=== PATIENT | male | born 1970 | race Caucasian/White ===

== ENCOUNTER 2023-02-07 07:34 | Outpatient (CLI) | payer BC, SELFPAY | END 2023-02-07 07:35 | disposition home or self-care (01) | LOC: NFLDREF 02-08 08:51 | PROVIDERS: PCP Internal Medicine; Referring Provider Internal Medicine; Visit Provider Internal Medicine | DX: Z13.220 Encounter for screening for lipoid disorders (principal); Z13.228 Encounter for screening for other metabolic disorders; Z85.46 Personal history of malignant neoplasm of prostate | CPT/HCPCS: 80053; 80061; 84153 ==

== ENCOUNTER 2024-02-20 08:39 | Outpatient (CLI) | payer BC, SELFPAY | END 2024-02-20 08:40 | disposition home or self-care (01) | LOC: NFLDREF 02-24 15:37 | PROVIDERS: PCP Internal Medicine; Referring Provider Internal Medicine; Visit Provider Internal Medicine | DX: C61 Malignant neoplasm of prostate (principal); E78.5 Hyperlipidemia, unspecified; Z13.228 Encounter for screening for other metabolic disorders | CPT/HCPCS: 80053; 80061; G0103 ==

== ENCOUNTER 2024-02-25 16:56 | Outpatient (CLI) | payer BC, SELFPAY | END 2024-02-25 16:57 | disposition home or self-care (01) | LOC: NFLDREF 16:57 | PROVIDERS: PCP Internal Medicine; Visit Provider Internal Medicine | DX: Z00.00 Encounter for general adult medical examination without abnormal findings (principal); C61 Malignant neoplasm of prostate | CPT/HCPCS: G0103 ==

== ENCOUNTER 2024-12-05 20:20 | Emergency (ER) | payer BC, SELFPAY ==
--- OUTSIDE RECORDS SUMMARY | 2024-12-05 20:21 | XMS_ITS | Clinical Summary ---
Author Organization [facility] Address [address] [place] [address] Care Team Providers Care Bank Courier Name Role Phone Unavailable Primary Care Provider Unavailabl e Source Comments Patient records contain information from all sites at [facility]. For routine questions regarding patient records, call [phone] during business hours, M-F 8:00 AM - 5:00 PM Central Time. Record requests for emergency care only can be directed to [phone] at any time.[facility] Allergies Active Allergy Reactions Criticality Noted Date Comments Fish Containing Products Swelling,Angioedema throat swelling Medications * This document contains information received from the source organization and may not represent a complete record from that organization. ibuprofen (ADVIL,MOTRIN) 200 mg tablet Take 1-2 tablets by mouth daily as needed. Pain, infrequent use 6 Active loratadine (CLARITIN) 10 mg tablet Take 1 tablet by mouth daily. 6 Active montelukast (SINGULAIR) 10 mg tablet Take 1 tablet by mouth at bedtime. 6 Active multivitamin tablet Take 1 tablet by mouth daily. 6 Active albuterol sulfate (PROAIR HFA INHL) Inhale 1 Inhaler every 4 (four) hours. As needed 6 Active sennosides-docu sate sodium (SENNA WITH DOCUSATE SODIUM) 8.6-50 mg per tablet Take 1 tablet by mouth at bedtime as needed. 6 Active pantoprazole (Protonix) 40 mg EC tablet Take 1 tablet by mouth daily. 0 Active EPINEPHrine 0.3 mg/0.3 mL injection syringe Inject 0.3 mg under the skin as needed for anaphylaxis. 1 Active magnesium 200 mg tablet Take 400 mg by mouth daily before morning meal. Active Active Problems Problem Noted Date Diagnosed Date Primary Malignant Neoplasm Of Prostate 6 Family History Medical History Relation Name Comments Hyperlipidemia Father Emperatriz Ferro 50 Prostate cancer Father Emperatriz Ferro 70 Skin cancer Father Emperatriz Ferro 66 Coronary artery disease Maternal Grandfather N [place] 60 Hypertension Maternal Grandfather N [place] 55 Stroke Maternal Grandfather N [place] 63 Arthritis Maternal Grandmother D [place] 60 Colon cancer Maternal Grandmother D [place] 55 Diabetes Maternal Grandmother D [place] 60 Arthritis Mother Emperatriz Ferro 55 Diabetes Mother Emperatriz Ferro 50 Hypertension Mother Emperatriz Ferro 65 Kidney disease Mother Emperatriz Ferro 71 Skin cancer Mother Emperatriz Ferro 67 Stroke Mother Emperatriz Ferro 69 Skin cancer Mother's Brother D [place] 74 Prostate cancer Paternal Grandfather T [place] 55 Asthma Son Carmelina ferro 4 Relation Name Status Comments Father Emperatriz Ferro Alive Maternal Grandfather N [place] Alive Maternal Grandmother D [place] Alive Mother Emperatriz Ferro Alive Mother's Brother D [place] Alive Paternal Grandfather T [place] Alive Son Carmelina ferro Alive Social History Tobacco Use Types Packs/Day Years Used Date Smoking Tobacco: Never Passive Smoke Exposure: Past Smokeless Tobacco: Never Alcohol Use Standard Drinks/Week Comments No 0 (1 standard drink = 0.6 oz pur e alcohol) [facility] Utilities Answer Date Recorded In the past 12 months has [facility] [employer], [employer], or [employer] threatened to shut off services in your home? No 07/27/2024 Humiliation, Afraid, Rape, and Kick questionnair e Answer Date Recorded Within the last year, have y ou been afraid of your partner or ex-partner? No 07/29/2022 Within the last year, have y ou been humiliated or emotionally abused in other ways by your partner or ex-partner? No Within the last year, have y ou been kicked, hit, slapped, or otherwise physically hurt by your partner or ex-partner? No 07/29/2022 Within the last year, have y ou been raped or forced to have any kind of sexual activity by your partner or ex-partner? No 07/29/2022 Social Connection and Isolat ion Panel [NHANES] Answer Date Recorded In a typical week, how many times do you talk on the phone with family, friends, or neighbors? Three times a week 07/29/2022 How often do you get togethe r with friends or relatives? Once a week 07/29/2022 How often do you attend chur ch or synagogue services? More than 4 times per year 07/29/2022 Do you belong to any clubs o r organizations such as zoroastrianism groups, unions, fraternal or athletic groups, or school groups? Yes 07/29/2022 How often do you attend meet ings of the clubs or organizations you belong to? More than 4 times per year 07/29/2022 Are you , , di vorced, , never , or living with a partner? 07/29/2022 AUDIT-C Answer Date Recorded Q1: How often do you have a drink containing alc ohol? Never 07/29/2022 Average Number of Drinks Not on file 023 Frequency of Binge Drinking Not on file 07/14 Overall Financial Resource Strain (CARDIA) Answe r Date Recorded How hard is it for you to pa y for the very basics like food, housing, medical care, and heating? Not hard at all 07/29/2022 [facility] - Occupational Stress Questionnaire Answer Date Recorded Do you feel stress - tense, restless, nervous, or anxious, or unable to sleep at night because your mind is troubled all the time - these days? Not at all 07/29/2022 Exercise Vital Sign Answer Date Recorde d On average, how many days pe r week do you engage in moderate to strenuous exercise (like a brisk walk)? 3 days 07/27/2024 On average, how many minutes do you engage in exercise at this level? 40 min 07/27/2024 Hunger Vital Sign Answer Date Recorded Within the past 12 months, y ou worried that your food would run out before you got the money to buy more. Never true 07/27/19 25 Within the past 12 months, t he food you bought just didn't last and you didn't have money to get more. Never true 07/27/2024 PRAPARE - Transportation Answer Date Re corded In the past 12 months, has l ack of transportation kept you from medical appointments or from getting medications? No 07/14 In the past 12 months, has l ack of transportation kept you from meetings, work, or from getting things needed for daily living? No 07/27/2024 Nutrition Answer Date Recorded On average, how many serving s of fruits and vegetables do you eat per day (serving size is equal to 1 cup or approximately the size of a tennis ball)? 0-2 07/27/2024 Dental Answer Date Recorded Dental: Regular Dentist Yes 07/24/19 Employment Answer Date Recorded Employment status Employed and actively working without restrictions 07/27/2024 Housing Stability Answer Date Recorded What is your living situation today? I have a [facility] place to live 07/27/2024 Education Answer Date Recorded What is the highest level of school you have completed or the highest degree you have received? Bachelor's degree (e.g., BA, AB, BS) 01/18/2019 Sex and Gender Information Value Date Recorded Sex Assigned at Male 01/20/2018 8:43 PM CDT Legal Sex Male 10:16 PM ONCOLOGY SPECIALIST Gender Identity Male 01/20/2018 8:43 PM CDT Sexual Orientation Straight 01/20/2018 8: 43 PM CDT Last Filed Vital Signs Vital Sign Reading Time Taken Comments Blood Pressure 109/72 11/23/2015 11:44 AM CDT NIBP - Value from [employer]. Pulse 62 11/23/2015 11:44 AM CDT Value from [employer]. Temperature - - Respiratory Rate 18 11/23/2015 11:4 4 AM CDT Oxygen Saturation - - Inhaled Oxygen Concentration - - Weight 67 kg (147 lb 11.3 oz) 11/22/2015 7:27 AM CDT Vital sign result from CDM. Height 174 cm (5' 8.5) 11/22/2015 7:27 AM CDT Vital sign result from CDM. Body Mass Index 22.13 11/22/2015 7:27 AM CDT Plan of Treatment Health Maintenance Due Date Last Done Comments CT Colonography 1969 Cologuard 1969 Colonoscopy 1969 Colorectal Cancer Screening 1969 FIT 1969 HIV Screening 1969 Hepatitis C Screening 1969 Lipid (Cholesterol) Screening 1969 Hepatitis B Vaccines (1 of 3 - 19+ 3-dose series) 1988 Fasting Glucose for Diabetes Screening 11/22/2018 11/23/2015, 11/21/2015 COVID-19 Vaccine (3 - 2023-2 5 season) 2024 10/21/2020, 09/30/2020 Influenza Vaccine (#1) 2024 , 05/26/2018 Depression Screening (Annual PHQ-2) 07/14/2024 DTaP,Tdap,and Td Vaccines (2 - Td or Tdap) 09/28/2029 09/29/2019, 12/26/2006 Zoster Vaccines Completed 11/22/2020, 07/03/2020 Pneumococcal vaccine (50+ years) Completed 02/12/2023 IPV Vaccines Aged Out No longer eligi ble based on patient's age to complete this topic Medical Devices Implanted Type Area Equities Trader Device Identifier Shelf Expiration Date Model / Serial / Lot Mesh Or Patch Mesh or Patch Groin Procedures Procedure Name Priority Date/Time Associated Diagnosis Comments ELECTROLYTE (CHEM 4) PANEL, S/P Routine 11/23/2015 12:42 AM CDT from Last 3 Months or Most Recently Relevant to Health Maintenance Results * (ABNORMAL) Electrolyte (Chem 4) Panel (11/23/2015 12:42 AM CDT) Chloride, S 102 98 - 107 MMOL/L [facility] HX Bicarbonate, P/S 24 22 - 29 MMOL/L [facility] Creatinine 0.6(L) 0.8 - 1.3 MG/DL [facility] eGFR Non-Black/Afric an Swedish >60 >60 ML/MIN/BSA [facility] eGFR-Black/Afri can Swedish >60 >60 ML/MIN/BSA [facility] BUN (Blood Urea Nitrogen), S 10 8 - 24 MG/DL [facility] Sodium, S 139 135 - 145 MMOL/L [facility] Potassium, S 4.3 3.6 - 5.2 MMOL/L [facility] Anion Gap 13 7 - 15 [facility] Glucose, S 132 70 - 140 MG/DL [facility] 11/23/2015 12:4 2 AM CDT 11/23/2015 12:42 AM CDT us Min Landis M.D. LAB BLOOD ADD-ON Final Resul t [facility] [address] [place] [address], [facility] from Last 3 Months or Most Recently Relevant to Health Maintenance Insurance [facility] Advance Directives For more information, please contact: [phone] Documents on File Type Date Recorded Patient Voice Over Artist Expl anation Advance Directives 11/22/2015 12:00 AM Leg acy document. See document viewer.
--- OUTSIDE RECORDS SUMMARY | 2024-12-05 20:21 | XMS_ITS | Clinical Summary ---
Author Organization [facility] Address [address] [place] [id number] Care Team Providers Care Hot Dip Plating Supervisor Name Role Phone Campos Livingston MD Primary Care Provider Allergies Active Allergy Reactions Criticality Noted Date Comments Fish Containing Products Angioedema 08/28/2015 throat swelling Medications montelukast (SINGULAIR) 10 mg tablet Take 1 tablet by mouth at bedtime. 0 5 Active albuterol HFA (PRO-AIR,VENTOLI N,PROVENTIL) 90 mcg/actuation inhaler Inhale 2 Puffs by mouth 4 times daily if needed. 0 6 Active sennosides-docus ate, 8.6-50 mg, (SENOKOT S) 8.6-50 mg tablet Take 1 tablet by mouth once daily. 0 9 Active multivitamin (MULTIPLE VITAMINS) tablet Take 1 tablet by mouth once daily. 0 9 Active loratadine (CLARITIN) 10 mg tablet Take 1 tablet by mouth once daily. 0 9 Active pantoprazole (PROTONIX) 40 mg delayed-release tabletIndication s:Gastroesophage al reflux disease, unspecified whether esophagitis present TAKE 1 TABLET BY MOUTH EVERY DAY 30 TO 60 MINUTES BEFORE A MEAL FOOD 90 tablet 0 Active EPINEPHrine (EPIPEN) 0.3 mg/0.3 mL injectionIndicat ions:Adverse food reaction, initial encounter Use as directed 2 Each 11 1 Active pantoprazole (PROTONIX) 40 mg delayed-release tabletIndication s:Gastroesophage al reflux disease, unspecified whether esophagitis present TAKE 1 TABLET ONCE DAILY 90 Tablet 3 4 Active Active Problems Problem Noted Date Diagnosed Date Elevated PSA 06/14/2015 Social History Tobacco Use Types Packs/Day Years Used Date Smoking Tobacco: Never Smokeless Tobacco: Never Tobacco Cessation:Counseling Given: Yes Alcohol Use Standard Drinks/Week Comments No 0 (1 standard drink = 0.6 oz pur e alcohol) Social Connections Answer Date Recorded Frequency of Communication with Friends and Fami ly Not on file 07/14/2021 Financial Resource Strain Answer Date R ecorded Difficulty of Paying Living Expenses Not on file 07/14/2021 Difficulty of Paying Living Expenses Not on file 07/14/2021 Sex and Gender Information Value Date Recorded Sex Assigned at Not on file Legal Sex Male 7:27 AM PSYCHIATRIST Gender Identity Not on file Sexual Orientation Not on file Obstetrics History Last Filed Vital Signs Vital Sign Reading Time Taken Comments Blood Pressure 108/74 08/25/2020 1:35 PM PSYCHIATRIST Pulse 48 11/16/2020 9:20 AM CDT Temperature 36.6 C (97.9 F) 08/21/2015 5:18 PM PSYCHIATRIST Respiratory Rate - - Oxygen Saturation 100% 08/25/2020 1:35 PM PSYCHIATRIST Inhaled Oxygen Concentration - - Weight 68.9 kg (152 lb) 11/16/2020 9:20 AM CDT Height 172.7 cm (5' 8) 11/16/2020 9:20 AM CDT Body Mass Index 23.11 11/16/2020 9:20 AM CDT Plan of Treatment Health Maintenance Due Date Last Done Comments Tdap 1980 Depression screening for age 12+ 1981 HIV for age 15-65 1984 Hepatitis C screening for age 18-79 11/05/1987 Hepatitis B series for 19+ ( 1 of 3 - 19+ 3-dose series) 1988 Tetanus booster 1989 Colonoscopy through age 75 2014 Lipids for age 45-75 2014 Pneumococcal series for age 50+ (1 of 1 - PCV) 11/05/2019 Zoster (shingles) series for age 50+ (1 of 2) 11/05/2019 BMI (ht and wt on same day) for age 18+ 11/16/2021 0 11/16/2020, 08/21/2015 COVID-19 vaccine series (2023- season) 2024 Influenza Vaccine (Season Ended) 2025 Insurance [facility] Care Teams Hot Dip Plating Supervisor Relationship Specialty Start Date End Date Campos Livingston MD [address] [place] [address] PCP - General Internal Medicine 03/05/19
[2024-12-05 20:30] VITALS: BP 152/95; PULSE 60; RESP 16; TEMP 37; O2SAT 98; BMI 22.2
--- NOTE | 2024-12-05 20:42 | ED.GENADULT ---
HPI - General Adult General Date Seen: 12/05/24 Chief complaint: Laceration/Wound Stated complaint: Chin Lac Time Seen by Provider: 12/05/24 20:23 History of Present Illness HPI narrative: 54 yo M with a history of GERD, mild asthma, presenting to the ER tonight for a laceration on the right side of his chin. At about 10 after a he was walking up some steps and then tripped on the last step and fell forward hit his chin on a speaker, suffering a laceration. Bleeding was controlled prior to arrival. He is up-to-date on tetanus. He is not having any pain in his jaw. No trouble opening or closing his mouth. No headache. No blurry vision. No other injuries. No neck pain Related Data Home Medications ?Medication ?Instructions ?Recorded ?Confirmed loratadine 10 mg tablet (Claritin) 10 mg PO QDAY 09/22/22 12/05/24 multivitamin 1 tab PO QAM 09/22/22 12/05/24 Previous Rx's ?Medication ?Instructions ?Recorded pantoprazole 40 mg tablet,delayed 40 mg PO DAILY #90 tabs 02/25/24 release albuterol sulfate 90 mcg/actuation 2 puff inhalation Q6H PRN 02/29/24 aerosol inhaler shortness of breath or wheezing #8.5 grams montelukast 10 mg tablet 10 mg PO QPM Asthma #90 tabs 07/23/24 Allergies Allergy/AdvReac Type Severity Reaction Status Date / Time Fish Containing Products Allergy Severe Anaphylaxis Verified 02/25/24 16:12 shellfish derived Allergy Severe trouble Verified 02/25/24 16:12 breathing PFSH PFS Medical History (Updated 12/05/24 @ 21:22 by Jayme Doty MD) GERD (gastroesophageal reflux disease) ?K21.9 - Gastro-esophageal reflux disease without esophagitis (ICD-10) Leg pain ?M79.606 - Pain in leg, unspecified (ICD-10) Headache ?R51.9 - Headache, unspecified (ICD-10) Abdominal bloating ?R14.0 - Abdominal distension (gaseous) (ICD-10) Screening due ?Z13.9 - Encounter for screening, unspecified (ICD-10) Asthma ?J45.909 - Unspecified asthma, uncomplicated (ICD-10) Surgical History (Updated 07/26/23 @ 14:44 by Alexsander Gibbs) History of prostatectomy ?Z90.79 - Acquired absence of other genital organ(s) (ICD-10) Family History (Updated 02/05/23 @ 14:45 by Alexsander Gibbs) Other Hearing loss Heart disease Social History (Updated 02/25/24 @ 16:43 by Christin Roldan ~ [facility]) What is your current living situation?: I presently have a place to live Problems where you live: no known problems In the past 12 months, utilities in danger of being shut off: no In past 12 months, lack of transportation kept you from medical appts, meetings, work, or getting things needed for daily living: no In the past 12 mos, have been you worried that your food would run out before you had money to buy more?: never true In the past 12 mos, the food you bought just didn't last and you didn't have money to buy more?: never true Smoking Status: Never smoker Non-prescribed substance use: denies use How often does anyone, including family, friends and others, physically hurt you: never How often does anyone, including family, friends and others, insult or talk down to you: never How often does anyone, including family, friends and others, threaten you with harm: never How often does anyone, including family, friends and others, scream or curse at you: never Exam Narrative: Exam Narrative: Constitutional: Appears well-developed and well-nourished. Alert. Conversant. Non toxic. HENT: Head: No depressed skull fracture, Raccoon Eyes, De Dios's sign, or hemotympanum. Face normal. TMs normal. Nose: Nose normal. Mouth/Throat: Oral mucosa is clear and moist. no trismus. Pharynx normal. Tonsils symmetric. No tonsillar enlargement, erythema, or exudate. On the inferior chin, adjacent to the right mandibular body there is a 2 cm straight linear laceration that does penetrate through the epidermis but not through the dermis. Adjacent to that and connecting to it there is a 1 cm slightly curvilinear laceration. This does create a small triangle type wound. Neither wound penetrates through the dermis. No active bleeding. No foreign body. Eyes: Conjunctivae normal. EOM normal. Pupils equal, round, and reactive to light. No scleral icterus. Neck: Normal range of motion. Neck supple. No tracheal deviation present. Cardiovascular: Normal rate, regular rhythm. No gallop. No friction rub. No murmur heard. Symmetric radial artery pulses Pulmonary/Chest: Effort normal. No stridor. No respiratory distress. No wheezes. No rales. No rhonchi . No tenderness. Musculoskeletal: RUE: Normal range of motion. No tenderness. No deformity LUE: Normal range of motion. No tenderness. No deformity RLE: Normal range of motion. No edema. No tenderness. No deformity LLE: Normal range of motion. No edema. No tenderness. No deformity Neurological: Alert and oriented to person, place, and time. Normal strength. CN II-VII intact. No sensory deficit. GCS eye subscore is 4. GCS verbal subscore is 5. GCS motor subscore is 6. Normal coordination Skin: Skin is warm and dry. No rash noted. No pallor. Normal capillary refill. Psychiatric: Normal mood. Normal affect. Const: Vital Signs, click to edit/add: Vital Signs - 24 hr 12/05/24 20:30 12/05/24 21:27 12/05/24 21:28 Temperature 98.6 F 98.6 F 98.6 F Pulse Rate [Pulse Oximeter] 60 65 65 Respiratory Rate 16 16 16 Blood Pressure [Ri ght Upper Arm] 152/95 H 145/74 H 145/74 H Pulse Oximetry 98 98 Oxygen Delivery Me thod Room Air Room Air Course Vital Signs Vital signs: Initial Vital Signs Temperature 98.6 F 12/05/24 20:30 Temperature Source Temporal Artery Scan 12/05/24 20:30 Pulse Rate 60 12/05/24 20:30 Respiratory Rate 16 12/05/24 20:30 Blood Pressure 152/95 H 12/05/24 20:30 Blood Pressure Mean 114 H 12/05/24 20:30 Blood Pressure Position Sitting 12/05/24 20:30 Pulse Oximetry 98 12/05/24 20:30 Oxygen Delivery Method Room Air 12/05/24 20:30 Vital Signs Temperature 98.6 F 12/05/24 20:30 Pulse Rate 60 12/05/24 20:30 Respiratory Rate 16 12/05/24 20:30 Blood Pressure 152/95 H 12/05/24 20:30 Pulse Oximetry 98 12/05/24 20:30 Oxygen Delivery Method Room Air 12/05/24 20:30 Temperature 98.6 F 12/05/24 21:28 Pulse Rate 65 12/05/24 21:28 Respiratory Rate 16 12/05/24 21:28 Blood Pressure 145/74 H 12/05/24 21:28 Pulse Oximetry 98 12/05/24 21:27 Oxygen Delivery Method Room Air 12/05/24 21:27 Medical Decision Making MDM Narrative Medical decision making narrative: Findings and exam are consistent with an uncomplicated laceration which was repaired as noted above. There is no evidence at this time to suggest any associated fracture or foreign body. No evidence for dental or intraoral injury. There is no evidence to suggest intracranial injury and patient is neurologically in tact. Indications to seek urgent reevaluation and signs of infection (including but not limited to increasing pain, redness, swelling, fevers, and drainage) were reviewed. Tetanus is up-to-date. This is a clean and noncontaminated wound in which prophylactic antibiotics are not indicated. An understanding of the discharge instructions and need for follow up were verbally confirmed. Discharge Plan Discharge Clinical Impression: Chin laceration Patient Disposition: Home, Self-Care Instructions: Laceration (DC), Skin Adhesive Care (ED) Additional Instructions: As we discussed, please come back to the ER or see her doctor right away if you have any concerns, especially have signs of infection such as redness, swelling, or pus draining from your wound. Prescriptions: No Action pantoprazole 40 mg tablet,delayed release (DR/EC) 40 mg PO DAILY Qty: 90 3RF loratadine [Claritin] 10 mg tablet 10 mg PO QDAY multivitamin Tablet 1 tab PO QAM albuterol sulfate 90 mcg/actuation HFA aerosol inhaler 2 puff inhalation Q6H PRN (Reason: shortness of breath or wheezing) Qty: 8.5 3RF montelukast 10 mg tablet 10 mg PO QPM Qty: 90 1RF Follow Up/Referrals: Campos Livingston MD [Primary Care Provider, Internal Medicine] Stand Alone [facility]: [facility] Instructions Procedures Laceration Right chin laceration: Pre procedure diagnosis: Right chin laceration Verification/time out: correct patient and correct site Site: face Side (If applicable): right Size (cm): 2 Description: irregular Depth: simple, single layer Pre-repair: deep structures intact Skin layer closed with: other (Dermabond)
[2024-12-05 21:27] VITALS: BP 145/74; PULSE 65; RESP 16; TEMP 37; O2SAT 98
[2024-12-05 21:28] VITALS: BP 145/74; PULSE 65; RESP 16; TEMP 37
== END 2024-12-05 21:28 | disposition home or self-care (01) ==
PROVIDERS: Emergency Provider Emergency Medicine; PCP Internal Medicine
DX: S01.81XA Laceration without foreign body of other part of head, initial encounter (principal); W10.9XXA Fall (on) (from) unspecified stairs and steps, initial encounter
CPT/HCPCS: 12011; 99282

== ENCOUNTER 2025-05-13 07:50 | Outpatient (CLI) | payer BC, SELFPAY | END 2025-05-13 07:51 | disposition home or self-care (01) | LOC: NFLDREF 19:19 | PROVIDERS: PCP Internal Medicine; Referring Provider Internal Medicine; Visit Provider Internal Medicine | DX: Z00.00 Encounter for general adult medical examination without abnormal findings (principal) | CPT/HCPCS: 80053; 80061 ==

== ENCOUNTER 2025-06-02 06:28 | Outpatient (CLI) | payer BC, SELFPAY ==
--- NOTE | 2025-06-02 07:56 | P.ANES_ITS ---
Anesthesia Charges Start Date/Time Anesthesia Start Date: 06/02/25 Anesthesia Start Time: 07:15 Stop Date/Time Anesthesia Stop Date: 06/02/25 Anesthesia Stop Time: 07:53 Coding CPT Codes CPT Codes: VIDYA LWR INTST NDSC NOS - 24254 ([id number]) P2 - PATIENT W/MILD SYST DISEASE, QK - LEAF STAMPER 2-4 CNCRNT ANES PROC, QX - MACHINE HEEL BUILDER SVC W/ MD MED DIRECTION
--- NOTE | 2025-06-02 07:56 | W.ANESCHARGE ---
Anesthesia Charges Start Date/Time Anesthesia Start Date: 06/02/25 Anesthesia Start Time: 07:15 Stop Date/Time Anesthesia Stop Date: 06/02/25 Anesthesia Stop Time: 07:53 Coding CPT Codes CPT Codes: VIDYA LWR INTST NDSC NOS - 43975 ([id number]) P2 - PATIENT W/MILD SYST DISEASE, QK - METAL GRADER 2-4 CNCRNT ANES PROC, QX - STOGIE PACKER SVC W/ MD MED DIRECTION
--- NOTE | 2025-06-02 10:21 | P.ANES_ITS ---
Anesthesia Charges Start Date/Time Anesthesia Start Date: 06/02/25 Anesthesia Start Time: 07:15 Stop Date/Time Anesthesia Stop Date: 06/02/25 Anesthesia Stop Time: 07:53 Coding CPT Codes CPT Codes: VIDYA LWAlejo INTST NDSC NOS - 55470 ([id number]) P2 - PATIENT W/MILD SYST DISEASE, QX - INTAKE NURSE SVC W/ MD MED DIRECTION, QK - INSTRUMENT MAN 2-4 CNCRNT ANEMelly PROC
--- NOTE | 2025-06-02 10:21 | W.ANESCHARGE ---
Anesthesia Charges Start Date/Time Anesthesia Start Date: 06/02/25 Anesthesia Start Time: 07:15 Stop Date/Time Anesthesia Stop Date: 06/02/25 Anesthesia Stop Time: 07:53 Coding CPT Codes CPT Codes: VIDYA LWAlejo INTST NDSC NOS - 71862 ([id number]) P2 - PATIENT W/MILD SYST DISEASE, QX - FIELD SALES CONSULTANT SVC W/ MD MED DIRECTION, QK - TELEMARKETING FUNDRAISER 2-4 CNCRNT ANEMelly PROC
== END 2025-06-02 06:29 | disposition home or self-care (01) ==
PROVIDERS: PCP Internal Medicine; Visit Provider Surgery
DX: Z12.11 Encounter for screening for malignant neoplasm of colon (principal); D12.0 Benign neoplasm of cecum; D12.2 Benign neoplasm of ascending colon; D12.3 Benign neoplasm of transverse colon; D12.7 Benign neoplasm of rectosigmoid junction; Z86.0100 Personal history of colon polyps, unspecified
CPT/HCPCS: 00811; 00812; 45385; J2704